=== PATIENT | male | born 2000 | race Asian ===

== ENCOUNTER 2024-01-06 15:17 | Emergency (ER) | payer OTHER ==
[~2024-01-06] VITALS: Ht 177.8 cm; Wt 70.5 kg
[2024-01-06 15:22] VITALS: BP 144/72; PULSE 73; RESP 16; TEMP 98
[2024-01-06] MEDS: PERTUSS(ACELL),DIPH,TET VAC/PF 0.5 ML SYRINGE IM. ONE (18:26)
[2024-01-06] MEDS: LIDOCAINE 1% 10 ML VIAL SQ ONE (18:27)
[2024-01-06] MEDS: BACITRACIN 0.9 GM PACKET OINTMENT TP ONE (18:27)
== END 2024-01-06 19:03 | disposition home or self-care (01) ==
LOC: EMS 15:18
DX: S51.012A Laceration without foreign body of left elbow, initial encounter (principal); X58.XXXA Exposure to other specified factors, initial encounter; Y93.89 Activity, other specified; Y92.89 Other specified places as the place of occurrence of the external cause; Y99.8 Other external cause status
CPT/HCPCS: 99283; 90715; 90471; 12002; J3490